=== PATIENT | male | born 1945 | race Caucasian/White ===

== ENCOUNTER → 2016-10-22 | Day surgery (SDC) | payer BC, MEDICARE, OTHER ==
[2016-10-15 11:44] VITALS: Ht 175.3 cm; Wt 63.6 kg
--- NOTE | 2016-10-17 14:40 | DIAGNOSTIC IMAGING REPORT ---
CHEST 2 VIEWS ROUTINE CLINICAL HISTORY: Chronic cough and sinusitis. Preop chest. Former smoker. COMPARISON STUDY: No previous studies for comparison. FINDINGS: The cardiac and mediastinal contours are normal. There is no evidence of focal pulmonary consolidation. There is no evidence of failure. No pleural effusions are visualized.[ There is a mild pectus deformity. Underlying emphysema is suspected. IMPRESSION: No active disease in the chest. Electronically signed by: Kyrie Katz M.D. 10/17/2016 2:38 PM Dictated Date/Time: 10/17/2016 2:37 PM
[2016-10-17 15:01] LABS: PARTIAL THROMBOPLASTIN RATIO 1.1
[2016-10-17 15:06] LABS: BASO % 1.1 %; BASO ABS # 0.07 K/uL (0-0.2); COMPLETE YES; EOS % 9.2 %; HEMATOCRIT 48.3 % (42-52); LYMPH % 29.2 %; LYMPH ABS # 1.79 K/uL (1.2-3.4); MEAN CELL VOLUME 88.5 fL (80-100); MEAN PLATELET VOLUME 9.7 fL (7.4-10.4); MONO % 10.5 %; PLATELET COUNT 324 K/uL (130-400); RED BLOOD COUNT 5.46 M/uL (4.7-6.1); WHITE BLOOD COUNT 6.12 K/uL (4.8-10.8)
[2016-10-17 15:18] LABS: POTASSIUM 4.3 mmol/L (3.5-5.1)
[~2016-10-22] VITALS: Ht 175.3 cm; Wt 63.6 kg
[~2016-10-22] MED LIST: ALBU18002 INH; ASCO500T3 PO; ASTA1CAP4 PO; ATROPINE SULFATE 0.1 MG/ML 5ML SYR IV PRN; BUTACAP36 PO; CEFAZOLIN 2000 MG/60 ML D5W IV SCH; CETI10TA84 PO; DEXAMETHASONE SOD INJ 4 MG/ML VIAL ONE; DIGE1CAP10 PO; EpHEDrine SULFATE INJ 50 MG/ML AMP IV PRN; EpINEphrine INJ 1MG/ML AMP 1 MG/ML AMP ONE; FENTANYL CITRATE INJ 50 MCG/1 ML 2 ML VIAL IV PRN; FENTANYL CITRATE INJ 50 MCG/1 ML 2 ML VIAL ONE; FLAX1CAP11 PO; FLUT0.15 NAE; GARL500C5 PO; GLUCTAB7 PO; GLYCOPYRROLATE INJ 0.2 MG/ML VIAL ONE; HYDROCODONE/ACETAMOPHEN 5/325MG TAB PO PRN; LACTATED RINGER'S 1000ML 1,000 ML IV SCH; LIDOCAINE HCL 2% 2 ML VIAL (20MG/ML) ONE; LIDOCAINE/EPINEPHRINE 1% INJ 50 ML VIAL ONE; MISCCAP52 PO; MONT1TAB3 PO; MULT-506 PO; NEOSTIGMINE METHYLSULFATE 5 MG/5 ML SYR ONE; ONDANSETRON INJ 2 MG/ML 2 ML VIAL IV PRN; ONDANSETRON INJ 2 MG/ML 2 ML VIAL ONE; OXYMETAZOLINE HCL 0.05% NA SPR 15 ML BTL PRN; OXYMETAZOLINE HCL 0.05% NA SPR 15 ML BTL SCH; PROPOFOL IV EMULSION 10 MG/ML 20 ML VIAL IV ONE; ROCURONIUM BROMIDE 10 MG/ML 5 ML VIAL ONE; SODIUM CHLORIDE 0.9% 1000ML IV SCH; SUMA25TA PO; SYMIN160 INH; ZNTT/150 PO
[2016-10-22] MEDS: LIDOCAINE 4% MPF SOAK 5 ML = 1 DOSE TOP ONE ×2 (06:38→11:43)
--- NOTE | 2016-10-22 08:42 | History & Physical Bridge - [place] ---
H&P Re-Evaluation Bridge Note: I have examined the patient, reviewed the History & Physical and in the interval since the performance of the History & Physical I have noted the following changes of clinical significance: No changes noted
[2016-10-22 10:03] LABS: INR 1.1 (0.9-1.1); PROTHROMBIN TIME (PATIENT) 11.3 SECONDS (9.0-12.0)
--- NOTE | 2016-10-22 12:16 | [facility] Operative Report ---
Operative Report Operative Date Oct 22, 2016. Pre-Operative Diagnosis Chronic Sinusitis, Hypertrophy of Nasal Turbinates Post-Operative Diagnosis Same Procedure(s) Performed Image Guided Endoscopic Sinus Surgery, Septoplasty, Bilateral Inferior Turbinate Outfracture And Turbinoplasty Surgeon Dr Babcock Jalousie Installer Surgeon(s) None Estimated Blood Loss 100ml Findings 1. SEVERE L DNS 2. R>L ITH 3. THICK MUCUS IN L MAX SINUS 4. POLYPOID MUCOSAL THICKENING INVOLVING ALL B PARANASAL SINUSES Specimens A: Left Maxillary Sinus Contents (Evaluate for possible allergic fungal sinusitis - culture and sensitivity) I attest to the content of the Intraoperative Record and any orders documented therein. Any exceptions are noted below.
--- NOTE | 2016-10-22 12:18 | Discharge Instructions ---
Discharge Instructions Admission Reason for Admission: Chronic Sinusitis, Hypertrophy Of Nasal Turbinates Discharge Discharge Diagnosis / Problem: SAME Discharge Goals Goal(s): Improve function Activity Recommendations Activity Limitations: as noted below 1. LIGHT ACTIVITY FOR 2WEEKS 2. NO NOSE BLOWING FOR 2WEEKS 3. NO DRIVING WHILE ON NARCOTIC PAIN MEDS . Current Hospital Diet Patient's current hospital diet: Discharge Diet Recommended Diet: Regular Diet Procedures Procedures Performed: Image Guided Endoscopic Sinus Surgery, Septoplasty, Bilateral Inferior Turbinate Outfracture And Turbinoplasty Pending Studies Studies pending at discharge: no Medical Emergencies . Who to Call and When: Medical Emergencies: If at any time you feel your situation is an emergency, please call 911 immediately. . Non-Emergent Contact Non-Emergency issues call your: Surgeon . . "Provider Documentation" section prepared by Adams Babcock. VTE Core Measure Inpt VTE Proph given/why not?: SCD's
--- NOTE | 2016-10-22 12:37 | Anesthesia Progress Nt - [facility] ---
Anesthesia Post Op Note Date & Time Oct 22, 2016 at 12:36 Vital Signs Pain Intensity: 0 Vital Signs Past 12 Hours Date Time Temp Pulse Resp B/P Pulse Ox O2 Delivery O2 Flow Rate FiO2 10/22/16 12:15 36.2 70 16 132/75 98 Humidified Oxygen 6 Mask 10/22/16 09:32 36.4 83 16 127/80 99 Room Air Notes Mental Status: alert / awake / arousable, participated in evaluation Pt Amnestic to Procedure: Yes Nausea / Vomiting: adequately controlled Pain: adequately controlled Airway Patency, RR, SpO2: stable & adequate BP & HR: stable & adequate Hydration State: stable & adequate Anesthetic Complications: no major complications apparent Pt doing well.
[2016-10-22 13:42] VITALS: BP 120/79; PULSE 75; TEMP 37; O2SAT 94
--- NOTE | 2016-10-22 14:13 | OPERATIVE REPORT ---
DATE OF OPERATION: 10/22/2016 PREOPERATIVE DIAGNOSES: 1. Left septal deviation. 2. Right greater than left inferior turbinate hypertrophy. 3. Chronic polypoid rhinosinusitis. POSTOPERATIVE DIAGNOSES: 1. Left septal deviation. 2. Right greater than left inferior turbinate hypertrophy. 3. Chronic polypoid rhinosinusitis. PROCEDURES: [employer] fusion image guided bilateral functional endoscopic sinus surgery consisting of: 1. Bilateral maxillary antrostomies. 2. Bilateral complete ethmoidectomies. 3. Bilateral balloon sinuplasty assisted frontal sinusotomies. 4. Bilateral sphenoidotomies. 5. Septoplasty. 6. Bilateral inferior turbinate outfracture and turbinoplasty. SURGEON: Adams Babcock MD ANESTHESIA: General endotracheal. ESTIMATED BLOOD LOSS: 100 mL. FINDINGS: 1. Kawzqgiz-oc-aliioj left septal deviation. 2. Right greater than left inferior turbinate hypertrophy. 3. Mucus within the left maxillary sinus. 4. Polypoid mucosal thickening and polyposis involving all the bilateral paranasal sinuses. SPECIMENS: Left maxillary sinus contents for evaluation to rule out allergic fungal sinusitis as well as evaluate for culture and sensitivity. COMPLICATIONS: None. INDICATIONS: The patient is a 71-year-old male with a history of chronic polypoid rhinosinusitis as he has been unresponsive to maximal medical therapy including systemic antibiotics and steroids. A post-treatment CT scan revealed pansinusitis as well as left septal deviation and right greater than left inferior turbinate hypertrophy. He presents for the above-mentioned procedures on an outpatient elective basis. DESCRIPTION OF PROCEDURE: After informed consent had been obtained from patient, patient was wheeled to the operating room and placed on the operating room table in the supine position. Monitors were placed after induction of general endotracheal anesthesia, patient was prepped in usual fashion for image-guided endoscopic sinus surgery. A [employer] fusion head set was placed over the forehead, registered, calibrated, and verified and used for the frontal sinus and sphenoid sinus portions of the case. Lidocaine and epinephrine pledgets were placed in the bilateral nasal cavities and pressure applied. The left-sided pledgets were removed. A freer elevator was used to medialize the left middle turbinate. The left middle turbinate as well as the uncinate process and lateral nasal wall were injected with 1% lidocaine with 1:100,000 epinephrine. Lidocaine and epinephrine pledgets were then placed in the left middle meatus. The right side was then addressed in a similar fashion. The left side pledgets were removed, then a [place] elevator was used to incise the uncinate process and the uncinate process was removed using a straight to Ronald-Cut forceps and powered instrumentation. The natural ostia of the left maxillary sinus was identified and this was enlarged anteriorly, inferiorly, and posteriorly using powered instrumentation. Of note, there was thick mucus in the left maxillary sinus which was suctioned and sent off for culture and sensitivity as well as pathology to rule out allergic fungal sinusitis given the dense nature of the mucus. It had a thick "peanut butter" consistency to it, consistent with possible allergic fungal sinusitis. A complete ethmoidectomy was then performed using powered instrumentation. Using the curved frontal sinus suction, the left frontal sinus was cannulated. The #6 frontal sinus balloon was inserted into the left frontal sinus and inflated to 12 atmospheres of pressure in 2 different locations along the left frontal recess tract. Power instrumentation was used to remove polypoid tissue from the left frontal recess tract. A transethmoidal approach to the sphenoid sinus was then undertaken using a straight suction under navigation. Once the sphenoid sinus was entered, the sphenoid sinus ostia was enlarged medially and inferiorly using powered instrumentation. The right side was then addressed in a similar fashion with similar intraoperative findings except that there was no mucus within the right maxillary sinus. The nasal septum was then injected with 1% lidocaine with 1:100,000 epinephrine. Lidocaine and epinephrine pledgets were then placed in the bilateral nasal cavities and pressure applied. After allowing adequate time for vasoconstriction, pledgets were removed and a #15 scalpel was used to make a left hemitransfixion incision through which the left side mucoperichondrial and mucoperiosteal flap was elevated. A #15 scalpel was then used to incise the quadrangular cartilage with care to preserve a 1.5 cm dorsal and caudal strut and the right-sided mucoperichondrial and mucoperiosteal flap were elevated through the cartilaginous incision. A Raisa swivel knife was then used to remove the deviated portion of the quadrangular cartilage. There is a large bony septal spur which was removed using Iza forceps. Of note, there was a very acute angulation of the spur posteriorly and this was then fractured using a De La Rosa elevator and then small pieces of septal bone were removed. Septal cavity was then suctioned. The left hemitransfixion incision was closed with several simple interrupted 4-0 chromic sutures. A 4-0 plain gut suture on a Mahesh needle was then used to perform a quilting stitch of the mucoperichondrial mucoperiosteal flaps bilaterally to help prevent septal hematoma. A De La Rosa elevator was then used in fracture and subsequently out fracture and the inferior turbinates bilaterally. These were injected with 1% lidocaine with 1:100,000 epinephrine. A 2.0 mm turbinate blade using powered instrumentation was then used to perform bilateral inferior turbinoplasties in a submucosal fashion. The sinonasal cavities and nasopharynx were then suctioned. Merogel was then placed in the bilateral ethmoid cavities/middle meati. An orogastric tube was placed and the stomach was suctioned free of air and stomach contents. This marked the end of the case. The patient tolerated the procedure well. There were no apparent complications. The patient was extubated and transferred to recovery room in stable condition. I attest to the content of the Intraoperative Record and any orders documented therein. Any exceptio ns are noted below.
== END | disposition home or self-care (01) ==
LOC: X.SURG 08:59
DX: J32.8 Other chronic sinusitis (principal); J34.3 Hypertrophy of nasal turbinates; J34.2 Deviated nasal septum; J34.89 Other specified disorders of nose and nasal sinuses; Z87.891 Personal history of nicotine dependence

== ENCOUNTER → 2016-11-14 | Outpatient (CLI) | payer MEDICARE ==
[~2016-11-14] MED LIST changes: -ATROPINE SULFATE 0.1 MG/ML 5ML SYR IV PRN; -BUTACAP36 PO; -CEFAZOLIN 2000 MG/60 ML D5W IV SCH; -DEXAMETHASONE SOD INJ 4 MG/ML VIAL ONE; -EpHEDrine SULFATE INJ 50 MG/ML AMP IV PRN; -EpINEphrine INJ 1MG/ML AMP 1 MG/ML AMP ONE; -FENTANYL CITRATE INJ 50 MCG/1 ML 2 ML VIAL IV PRN; -FENTANYL CITRATE INJ 50 MCG/1 ML 2 ML VIAL ONE; -FLUT0.15 NAE; -GLYCOPYRROLATE INJ 0.2 MG/ML VIAL ONE; -HYDROCODONE/ACETAMOPHEN 5/325MG TAB PO PRN; -LACTATED RINGER'S 1000ML 1,000 ML IV SCH; -LIDOCAINE HCL 2% 2 ML VIAL (20MG/ML) ONE; -LIDOCAINE/EPINEPHRINE 1% INJ 50 ML VIAL ONE; -MISCCAP52 PO; -NEOSTIGMINE METHYLSULFATE 5 MG/5 ML SYR ONE; -ONDANSETRON INJ 2 MG/ML 2 ML VIAL IV PRN; -ONDANSETRON INJ 2 MG/ML 2 ML VIAL ONE; -OXYMETAZOLINE HCL 0.05% NA SPR 15 ML BTL PRN; -OXYMETAZOLINE HCL 0.05% NA SPR 15 ML BTL SCH; -PROPOFOL IV EMULSION 10 MG/ML 20 ML VIAL IV ONE; -ROCURONIUM BROMIDE 10 MG/ML 5 ML VIAL ONE; -SODIUM CHLORIDE 0.9% 1000ML IV SCH
== END | disposition home or self-care (01) ==
LOC: C.PATHSPEC 16:43
PROVIDERS: ATTEND Dermatology
DX: L57.0 Actinic keratosis (principal)

== ENCOUNTER → 2017-07-01 | Day surgery (SDC) | payer MEDICARE ==
[~2017-07-01] VITALS: Ht 175.3 cm; Wt 63.6 kg
[~2017-07-01] MED LIST changes: +LIDOCAINE HCL 2% 2 ML VIAL (20MG/ML) ONE; +MIDAZOLAM HCL 1 MG/ML 2ML VIAL ONE; +ONDANSETRON INJ 2 MG/ML 2 ML VIAL ONE; +PROPOFOL IV EMULSION 10 MG/ML 20 ML VIAL IV ONE
[2017-07-01 10:10] VITALS: Ht 175.3 cm; Wt 63.6 kg
--- NOTE | 2017-07-01 10:10 | Endo History and Physical ---
History & Physical Date of Service: Jul 01, 2017. Chief Complaint: Screening Referring Physician: Case History of Present Illness 71 yo CM who presents for screening colonoscopy. Past Surgical History Hx Cardiac Surgery: No Hx Internal Defibrillator: No Hx Pacemaker: No Hx Abdominal Surgery: Yes (INGUINAL HERNIA REPAIR) Hx of Implantable Prosthesis: No Hx Post-Op Nausea and Vomiting: No Hx Cancer Surgery: No Hx Thoracic Surgery: No Hx Orthopedic: Yes (RT ARM FX REPAIR ( A CHILD)) Hx Urinary Tract Surgery: No Family History None Social History Smoking Status: Former Smoker Hx Substance Use: No Hx Alcohol Use: Yes (5-6 DRINKS/WEEK) Allergies Coded Allergies: NO KNOWN DRUG ALLERGIES (Verified Allergy, Unknown, ., 07/01/17) Current Medications Reported Home Medications Medications Dose Route/Sig Max Daily Dose Days Date Category Digestive Enzyme (Digestive Enzymes) 1 Cap Cap 1 Cap PO AC 10/15/16 Reported Astaxanthin 5 Mg Cap 1 Cap PO DAILY AT NOON 10/15/16 Reported Vitamin C (Ascorbic Acid) 500 Mg Tab 1 Tab PO DAILY AT NOON 10/15/16 Reported Garlic 500 Mg Cap 1 Cap PO QAM 10/15/16 Reported Flax Seed Oil (Flaxseed (Linseed)) 1 Cap Cap 1 Cap PO QAM 10/15/16 Reported Glucosamine Chondroitin (Zpznufqtuuh-Ajtizxlkotc-Wyj C-) 1 Tab Tab 1 Tab PO TID 10/15/16 Reported Multivitamin (Multivitamins) Tab 1 Tab PO QAM 10/15/16 Reported Zantac (Ranitidine HCl) 150 Mg Tab 1 Tab PO DAILY PRN 10/15/16 Reported Imitrex (Sumatriptan Succinate) 25 Mg Tab 25 Mg PO PRN PRN 10/15/16 Reported Zyrtec (Cetirizine HCl) 10 Mg Tab 10 Mg PO QAM 10/15/16 Reported Proair Respiclick (Albuterol Sulfate) 108 Mcg/Act Aer 1 Puff INH Q4H PRN 10/15/16 Reported Symbicort 160/4.5 Inhaler (Budesonide/Formoterol Fumarate) Aero 2 Puffs INH QAM 10/15/16 Reported Singulair (Montelukast Sodium) 10 Mg Tab 10 Mg PO QPM 10/15/16 Reported Vital Signs Weight (Kilograms): 63.64 Height (Feet): 5 Height (Inches): 9 Physical Exam General Appearance: WD/WN, no apparent distress Respiratory/Chest: Auscultation: breath sounds normal Cardiovascular: Heart Auscultation: RRR Abdomen: Bowel Sounds: normal Inspection & Palpation: soft, non-distended, no tenderness, guarding & rebound Assessment and Plan Assessment: 71 yo CM who presents for screening colonoscopy. Plan: Proceed with colonoscopy.
--- NOTE | 2017-07-01 11:15 | Anesthesiology Progress Note ---
Anesthesia Post Op Note Date & Time Jul 01, 2017 at 11:15 Vital Signs Pain Intensity: 0 Vital Signs Past 12 Hours Date Time Temp Pulse Resp B/P (MAP) Pulse Ox O2 Delivery O2 Flow Rate FiO2 07/01/17 11:09 67 16 105/75 (85) 98 Room Air 07/01/17 10:54 70 16 109/68 (82) 98 Room Air 07/01/17 10:17 36.6 56 18 128/79 (95) 98 Room Air Notes Mental Status: alert / awake / arousable, participated in evaluation Pt Amnestic to Procedure: Yes Nausea / Vomiting: adequately controlled Pain: adequately controlled Airway Patency, RR, SpO2: stable & adequate BP & HR: stable & adequate Hydration State: stable & adequate Anesthetic Complications: no major complications apparent
--- NOTE | 2017-07-01 11:19 | Discharge Instructions ---
Endoscopy Patient Instructions Date / Procedure(s) Performed Jul 01, 2017. Colonoscopy Allergy Information Coded Allergies: NO KNOWN DRUG ALLERGIES (Verified Allergy, Unknown, ., 07/01/17) Discharge Date / Findings Jul 01, 2017. Diverticulosis Internal hemorrhoids Medication Instructions Stopped Medication(s): stop supplements OK to resume all medications today as prescribed Reported Home Medications Medications Dose Route/Sig Max Daily Dose Days Date Category Digestive Enzyme (Digestive Enzymes) 1 Cap Cap 1 Cap PO AC 10/15/16 Reported Astaxanthin 5 Mg Cap 1 Cap PO DAILY AT NOON 10/15/16 Reported Vitamin C (Ascorbic Acid) 500 Mg Tab 1 Tab PO DAILY AT NOON 10/15/16 Reported Garlic 500 Mg Cap 1 Cap PO QAM 10/15/16 Reported Flax Seed Oil (Flaxseed (Linseed)) 1 Cap Cap 1 Cap PO QAM 10/15/16 Reported Glucosamine Chondroitin (Anjhfyyburh-Nzypmztrfam-Pzy C-) 1 Tab Tab 1 Tab PO TID 10/15/16 Reported Multivitamin (Multivitamins) Tab 1 Tab PO QAM 10/15/16 Reported Zantac (Ranitidine HCl) 150 Mg Tab 1 Tab PO DAILY PRN 10/15/16 Reported Imitrex (Sumatriptan Succinate) 25 Mg Tab 25 Mg PO PRN PRN 10/15/16 Reported Zyrtec (Cetirizine HCl) 10 Mg Tab 10 Mg PO QAM 10/15/16 Reported Proair Respiclick (Albuterol Sulfate) 108 Mcg/Act Aer 1 Puff INH Q4H PRN 10/15/16 Reported Symbicort 160/4.5 Inhaler (Budesonide/Formoterol Fumarate) Aero 2 Puffs INH QAM 10/15/16 Reported Singulair (Montelukast Sodium) 10 Mg Tab 10 Mg PO QPM 10/15/16 Reported Provider Instructions Activity Restrictions - No exercising or heavy lifting for 24 hours. - Do not drink alcohol the day of the procedure. - Do not drive a car or operate machinery until the day after the procedure. - Do not make any important decisions or sign important papers in 24 hours after the procedure. Following Day: - Return to full activity which may include returning to work/school. Diet Start your diet with liquids and light foods (jello, soup, juice, toast). Then eat your usual diet if not nauseated. Treatment For Common After Affects For mild abdominal pain, bloating, or excessive gas: - Rest - Eat lightly - Lie on right side Follow-Up Information Follow-up with Dr. Simons as scheduled Anesthesia Information What You Should Know You have had a procedure that required some medicine to reduce anxiety and discomfort. This treatment is called moderate sedation. After receiving the treatment, you may be sleepy, but you will be able to breathe on your own. The effects of the treatment may last for several hours. Follow these instructions along with Activity/Diet recommendations noted above: * Do NOT do anything where dizziness or clumsiness would be dangerous. * Rest quietly at home today, then you can be up and about tomorrow. * Have a responsible person stay with you the rest of today. * You may have had an I.V. today. If so, you may take the dressing off later today. Recommendations Call your doctor if: * Trouble breathing * Continuous vomiting for more than 24 hours * Temperature above 101 degrees * Severe abdominal pain or bloating * Pain not relieved by pain medicine ordered * There is increased drainage or redness from any incision * A large amount of rectal bleeding greater than 2-3 tablespoons. (If you had a polyp/s removed or have hemorrhoids, a small amount of blood - from the rectum is to be expected.) * You have any unanswered questions or concerns. IN THE EVENT OF A SERIOUS EMERGENCY, GO TO THE NEAREST EMERGENCY ROOM Your discharge instructions were prepared by provider Jaren Brito. Patient Instructions Signature Page Torsten Seymour Patient (or Guardian) Signature/Date: I have read and understand the instructions given to me by my caregivers. Caregiver/RN/Doctor Signature/Date: The above-named patient and/or guardian has received patient instructions on this date. + Original Patient Signature Page (only) stays with chart. Please make copy for patient.
--- NOTE | 2017-07-01 11:22 | GI REPORT ---
Procedure Date: 07/01/2017 10:25 AM Procedure: Colonoscopy Indications: Screening for colorectal malignant neoplasm Medicines: Monitored Anesthesia Care Complications: No immediate complications. Estimated Blood Loss: Estimated blood loss: none. Procedure: Pre-Anesthesia Assessment: - Prior to the procedure, a History and Physical was performed, and patient medications and allergies were reviewed. The patient's tolerance of previous anesthesia was also reviewed. The risks and benefits of the procedure and the sedation options and risks were discussed with the patient. All questions were answered, and informed consent was obtained. Prior Anticoagulants: The patient has taken no previous anticoagulant or antiplatelet agents. ASA Grade Assessment: II - A patient with mild systemic disease. After reviewing the risks and benefits, the patient was deemed in satisfactory condition to undergo the procedure. After I obtained informed consent, the scope was passed under direct vision. Throughout the procedure, the patient's blood pressure, pulse, and oxygen saturations were monitored continuously. The scope was introduced through the anus and advanced to the terminal ileum. The scope was introduced through the and advanced to. The colonoscopy was performed without difficulty. The patient tolerated the procedure well. The quality of the bowel preparation was good. The terminal ileum, the ileocecal valve and the appendiceal orifice were photographed. Findings: Multiple small-mouthed diverticula were found in the sigmoid colon. Non-bleeding internal hemorrhoids were found during retroflexion. The hemorrhoids were small. The perianal and digital rectal examinations were normal. Impression: - Diverticulosis in the sigmoid colon. - Non-bleeding internal hemorrhoids. - No specimens collected. Recommendation: - Resume previous diet. - Continue present medications. - No repeat colonoscopy due to age and the absence of advanced adenomas. - Return to primary care physician as previously scheduled. Jaren Brito DO 07/01/2017 11:22:27 AM This report has been signed electronically. Note Initiated On: 07/01/2017 10:25 AM I attest to the content of the Intraoperative Record and orders documented therein, exceptions below
[2017-07-01 11:24] VITALS: BP 120/83; PULSE 63; O2SAT 98
== END | disposition home or self-care (01) ==
LOC: C.GI 09:49
PROVIDERS: ATTEND Internal Medicine
DX: Z12.11 Encounter for screening for malignant neoplasm of colon (principal); K57.30 Diverticulosis of large intestine without perforation or abscess without bleeding; K64.8 Other hemorrhoids; Z87.891 Personal history of nicotine dependence; Z79.899 Other long term (current) drug therapy

== ENCOUNTER → 2017-12-31 | Outpatient (CLI) | payer MEDICARE ==
[~2017-12-31] MED LIST changes: -LIDOCAINE HCL 2% 2 ML VIAL (20MG/ML) ONE; -MIDAZOLAM HCL 1 MG/ML 2ML VIAL ONE; -ONDANSETRON INJ 2 MG/ML 2 ML VIAL ONE; -PROPOFOL IV EMULSION 10 MG/ML 20 ML VIAL IV ONE; +RANI150T81 PO; -ZNTT/150 PO
[2017-12-31 13:53] LABS: BLOOD UREA NITROGEN 19 mg/dl (7-18); CALCIUM 9.3 mg/dl (8.5-10.1); CARBON DIOXIDE 29 mmol/L (21-32); CREATININE 1.06 mg/dl (0.60-1.40); GLUCOSE 91 mg/dl (70-99); POTASSIUM 4.3 mmol/L (3.5-5.1); SODIUM 141 mmol/L (136-145)
[2017-12-31 13:58] LABS: CHOLESTEROL 172 mg/dl (0-200); LDL CHOLESTEROL CALCULATED 91 mg/dl
== END | disposition home or self-care (01) ==
LOC: C.LABBC 11:00
PROVIDERS: ATTEND Nurse Practitioner Adult Health
DX: Z13.220 Encounter for screening for lipoid disorders (principal); K21.9 Gastro-esophageal reflux disease without esophagitis; Z12.5 Encounter for screening for malignant neoplasm of prostate